=== PATIENT | male | born 1945 | race Caucasian/White ===

== ENCOUNTER 2019-05-19 22:15 | Inpatient (IN) ==
--- NOTE | 2019-05-19 22:35 | Emergency Department Note ---
Altered Mental Status HPI - General Chief Complaint: Altered Mental Status Stated Complaint: Altered LOC Time Seen by Provider: 05/19/19 22:22 Source: patient, family Mode of arrival: wheelchair Limitations: no limitations - History of Present Illness HPI Narrative: 73-year-old male comes in for altered mental status for the last 3 days. Apparently he was seen on the fifth, that is 4 days ago, and is treated with ciprofloxacin for a urinary tract infection. I reviewed Dr. Villalobos's note from that visit as well as the microbiology which shows coagulase-negative staph which is resistant to Levaquin. Anyways he has not gotten better over the last 3 days. 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 He has an indwelling suprapubic catheter that was last changed on the first of the month or 9 days ago. He is also on methenamine and Zofran for nausea. He had a normal bowel movements this morning - Related Data Home Medications Medication Instructions Recorded Confirmed aspirin 81 mg tablet,delayed 81 mg PO QDAY tab 11/30/14 05/19/19 release baclofen 20 mg tablet 20 mg PO TID tab 11/30/14 05/19/19 Famotidine [Pepcid] 20 mg PO HS 12/22/15 05/19/19 guaiFENesin [Mucus Relief] 400 mg PO QDP PRN 12/22/15 05/19/19 Pilocarpine HCl [Salagen] 5 mg PO TID 08/25/17 05/19/19 bisacodyl 5 mg tablet,delayed 10 mg PO QPM 2 Days #4 tab 05/27/18 05/19/19 release folic acid 1 mg tablet 2 mg PO QDAY 11/18/18 05/19/19 multivitamin 1 tab PO QDAY 11/18/18 05/19/19 Previous Rx's Medication Instructions Recorded Contour Test Strips See Dose Instructions .ROUTE 10/02/16 .MEDSUPPLY #100 each NS Sterile Saline #3 each 01/22/17 methotrexate sodium 5 mg tablet 15 mg PO QWEEK #60 tab 07/09/17 Disabled parking permit #1 ea 10/22/17 betamethasone dipropionate 0.05 % 1 applic TOPICAL BID PRN #45 g 10/22/17 topical cream furosemide 40 mg tablet 40 mg PO QDAY #30 tab 11/12/17 sitagliptin 50 mg-metformin 1,000 1 tab PO BID #60 tab 12/11/17 mg tablet potassium chloride 10 mEq 10 meq PO QDAY #30 cap 12/18/17 capsule,extended release diazepam 5 mg tablet 5 mg PO TID PRN #60 tab 01/10/18 trazodone 100 mg tablet 100 mg PO .COMPLEX #30 tab 01/10/18 citalopram 20 mg tablet 30 mg PO QDAY #45 tab 01/17/18 spironolactone 50 mg tablet 50 mg PO QDAY #30 tab 03/11/18 hydrocodone 5 mg-acetaminophen 325 1 tab PO Q4-6H PRN #120 tab 05/27/18 mg tablet methenamine hippurate 1 gram tablet 1 g PO BID #60 tab 10/22/18 Fluticasone Propionate [24 Hour 2 spray NS DAILY #1 unit 04/17/19 Allergy Relief] Ciprofloxacin [Cipro] 250 mg PO BID #20 tab 05/15/19 Methenamine Hippurate [Hiprex] 1 gm PO 1HRACBID #60 tab 05/15/19 Ondansetron [Zofran ODT] 4 mg SL Q4-6HP PRN #30 tab 05/15/19 Allergies Allergy/AdvReac Type Severity Reaction Status Date / Time canagliflozin [From Invokana] Allergy Intermediate Itching Verified 05/15/19 18:55 Review of Systems All systems ED: reviewed and negative except as stated. Past Medical History - Past Medical History Attestation: Yes: The following information was validated with the patient. Medical history: Reports: DM, other (C3-4 incomplete quadriplegia) Surgical history ED: Reports: orthopedic, other - Social History smoking status: Former smoker Alcohol use: Reports: Rarely Drug use: Reports: none Physical Exam Normocephalic atraumatic. Conjunctive are clear sclerae white and icteric. Pupils are equal round reactive to light. No nasal discharge or congestion. Oropharynx with dry buccal mucosa. Posterior pharynx is clear. Neck is supple without lymphadenopathy or thyromegaly. Heart is regular rate and rhythm no murmur appreciated. Lungs are clear to auscultation bilaterally without wheezes rales rhonchi or respiratory distress. Abdomen is soft nontender nondistended. He does have a suprapubic catheter in place -the site is clean dry and intact. His Rodarte bag shows yellow urine that is clear. He does have arm and leg atrophy and extension status post motor paralysis. We did roll him and look at his backside he does have a tiny wound perhaps 1 to 2 mm at the center of his back. This is bandaged and appears to be healing well. No evidence of infection there-no erythema edema purulent drainage etc. Because of his decreased hematocrit and elevated BUN I did a rectal exam. He is Hemoccult negative. He has no rectal tone consistent with his quadriplegia. Looking at his perineum he does have a stage I pressure ulcer over his sacrum- this is new per his Limitations: no limitations Course Vital Signs Temperature 97.2 F 05/19/19 22:17 Pulse Rate 59 L 05/19/19 22:17 Respiratory Rate 17 05/19/19 22:17 Blood Pressure 135/66 05/19/19 22:17 Pulse Oximetry (%) 96 05/19/19 22:17 Temperature 97.2 F 05/19/19 22:17 Pulse Rate 67 05/19/19 23:47 Respiratory Rate 13 05/19/19 23:47 Blood Pressure 129/71 05/19/19 23:47 Pulse Oximetry (%) 94 05/19/19 23:47 Altered Mental Status - Lab Data Lab results reviewed: Yes I reviewed the patient's lab results. Result diagrams: 05/19/19 22:40 05/19/19 22:40 Lab Results 05/19/19 05/19/19 05/19/19 Range/Units 22:40 22:40 22:40 WBC 6.9 (4.5-11.0) K/mcL RBC 3.59 L (4.50-5.90) M/mcL Hgb 11.4 L (13.5-16.5) g/dL Hct 33.9 L (41.0-55.0) % POC Hct 32.0 L (41.0-55.0) % MCV 94.4 (80.0-100.0) fL MCH 31.7 (26.0-34.0) pg MCHC 33.5 (31.0-36.0) g/dL RDW 17.2 H (11.5-14.5) % Plt Count 162 (140-440) K/mcL MPV 7.8 (7.4-10.4) fL Gran % 87.8 H (38.0-78.0) % Lymph % (Auto) 5.1 L (15.5-49.0) % [place] % (Auto) 3.3 (1.0-12.0) % Eos % (Auto) 3.8 (0.0-7.0) % Baso % (Auto) 0 (0.0-2.0) % Gran # 6.1 (1.8-8.0) K/mcL Lymph # (Auto) 0.4 L (1.5-4.8) K/mcL [place] # (Auto) 0.2 (0.1-0.9) K/mcL Eos # (Auto) 0.3 (0.0-0.7) K/mcL Baso # (Auto) 0 (0.0-0.3) K/mcL VBG Lactic Acid 2.1 H (0.5-2.0) mmol/L POC Sodium 132 L (133-145) mmol/L Sodium 130 L (133-145) mmol/L POC Potassium 5.1 (3.3-5.1) mmol/L Potassium 5.1 (3.3-5.1) mmol/L POC Chloride 99 (96-108) mmol/L Chloride 93 L (96-108) mmol/L Carbon Dioxide 24 (22-30) mmol/L POC Total CO2 27 (22-30) mmol/L Anion Gap 13.0 (8-16) POC BUN 53 H (8-23) mg/dl BUN 55 H (8-23) mg/dl Creatinine 2.4 H (0.7-1.2) mg/dl POC Creatinine 2.7 H (0.7-1.2) mg/dl GFR Calculation 26 Glucose 140 H (70-105) mg/dL POC Glucose 133 H (70-105) mg/dL Calcium 11.3 H (8.6-10.4) mg/dl POC WB Ioniz Calcium 1.43 H (1.16-1.32) mmol/L Total Bilirubin 0.4 (0.0-1.0) mg/dL AST 32 (0-37) U/l ALT 36 (0-40) U/l Alkaline Phosphatase 83 (39-117) U/L Ammonia (16-60) umol/L Total Protein 7.7 (5.9-8.4) gm/dL Albumin 3.7 (3.2-5.2) gm/dL Globulin 4.0 H (2.2-3.7) gm/dL Albumin/Globulin Ratio 0.9 L (1.0-2.3) Urine Color Urine Appearance Urine pH (5.0-9.0) Ur Specific [place] (1.000-1.035) Urine Protein (NEG) mg/dL Urine Glucose (UA) (NEG) mg/dL Urine Ketones (NEG) mg/dL Urine Occult Blood (<0.03) mg/dL Urine Nitrate (NEG) Urine Bilirubin (NEG) mg/dL Urine Urobilinogen (NEG) mg/dL Ur Leukocyte Esterase (NEG) /uL Urine RBC (0-1) /hpf Urine WBC (0-4) /hpf Ur Squamous Epith Cells (0-4) /hpf Calcium Oxalate Crystal (0) /hpf Amorphous Crystals (0) /hpf Urine Bacteria (0) /hpf Hyaline Casts (0-2) /lpf Urine Mucus (0) /hpf 05/19/19 05/19/19 Range/Units 22:40 23:05 WBC (4.5-11.0) K/mcL RBC (4.50-5.90) M/mcL Hgb (13.5-16.5) g/dL Hct (41.0-55.0) % POC Hct (41.0-55.0) % MCV (80.0-100.0) fL MCH (26.0-34.0) pg MCHC (31.0-36.0) g/dL RDW (11.5-14.5) % Plt Count (140-440) K/mcL MPV (7.4-10.4) fL Gran % (38.0-78.0) % Lymph % (Auto) (15.5-49.0) % [place] % (Auto) (1.0-12.0) % Eos % (Auto) (0.0-7.0) % Baso % (Auto) (0.0-2.0) % Gran # (1.8-8.0) K/mcL Lymph # (Auto) (1.5-4.8) K/mcL [place] # (Auto) (0.1-0.9) K/mcL Eos # (Auto) (0.0-0.7) K/mcL Baso # (Auto) (0.0-0.3) K/mcL VBG Lactic Acid (0.5-2.0) mmol/L POC Sodium (133-145) mmol/L Sodium (133-145) mmol/L POC Potassium (3.3-5.1) mmol/L Potassium (3.3-5.1) mmol/L POC Chloride (96-108) mmol/L Chloride (96-108) mmol/L Carbon Dioxide (22-30) mmol/L POC Total CO2 (22-30) mmol/L Anion Gap (8-16) POC BUN (8-23) mg/dl BUN (8-23) mg/dl Creatinine (0.7-1.2) mg/dl POC Creatinine (0.7-1.2) mg/dl GFR Calculation Glucose (70-105) mg/dL POC Glucose (70-105) mg/dL Calcium (8.6-10.4) mg/dl POC WB Ioniz Calcium (1.16-1.32) mmol/L Total Bilirubin (0.0-1.0) mg/dL AST (0-37) U/l ALT (0-40) U/l Alkaline Phosphatase (39-117) U/L Ammonia 13 L (16-60) umol/L Total Protein (5.9-8.4) gm/dL Albumin (3.2-5.2) gm/dL Globulin (2.2-3.7) gm/dL Albumin/Globulin Ratio (1.0-2.3) Urine Color Yellow Urine Appearance Hazy Urine pH 5.0 (5.0-9.0) Ur Specific [place] 1.014 (1.000-1.035) Urine Protein Neg (NEG) mg/dL Urine Glucose (UA) Negative (NEG) mg/dL Urine Ketones Neg (NEG) mg/dL Urine Occult Blood Neg (<0.03) mg/dL Urine Nitrate Neg (NEG) Urine Bilirubin Neg (NEG) mg/dL Urine Urobilinogen Neg (NEG) mg/dL Ur Leukocyte Esterase 250 A (NEG) /uL Urine RBC 1 (0-1) /hpf Urine WBC 15 H (0-4) /hpf Ur Squamous Epith Cells 0 (0-4) /hpf Calcium Oxalate Crystal Few A (0) /hpf Amorphous Crystals Few A (0) /hpf Urine Bacteria 0 (0) /hpf Hyaline Casts 3 H (0-2) /lpf Urine Mucus Few (0) /hpf Disposition Pt seen by [employer]/PA only: No Clinical Impression: Dehydration Altered mental status Qualifiers: Altered mental status type: delirium Qualified Code(s): R41.0 - Disorientation, unspecified Urinary tract infection Qualifiers: Urinary tract infection type: catheter-associated UTI Indwelling urinary catheter type: cystostomy catheter Encounter type: subsequent encounter Qualified Code(s): T83.510D - Infection and inflammatory reaction due to cystostomy catheter, subsequent encounter; N39.0 - Urinary tract infection, site not specified Acute renal failure Qualifiers: Acute renal failure type: unspecified Qualified Code(s): N17.9 - Acute kidney failure, unspecified Hypotension Qualifiers: Hypotension type: unspecified hypotension type Qualified Code(s): I95.9 - Hypotension, unspecified Pressure ulcer, stage 1 Qualifiers: Pressure injury location: contiguous region involving back and buttock Laterality: unspecified laterality Qualified Code(s): L89.41 - Pressure ulcer of contiguous site of back, buttock and hip, stage 1 Summary: Likely partially treated or resistant UTI causing symptoms of altered mental status. However we will check chest x-ray and laboratory as well. Start nitrofurantoin per sensitivities on microbiology from 4 days ago. He looks dehydrated on exam-dry buccal mucosa His creatinine is elevated to 2.4 from 1.6. We will start normal saline IV fluid for acute renal failure. This is likely prerenal. BUN is elevated as well but he is Hemoccult negative and hemoglobin is 11.6. Blood pressure is low normal-starting IV fluids Pressure responded well to IV fluids. I discussed findings with the patient and his -recommend that he come in the hospital for further evaluation and care Discussed case with Dr. Martin, hospitalist. He agreed except the patient for further care and evaluation. Recommend we change antibiotics to Rocephin and continue IV fluids. I will write transition orders Disposition: Xfer As Inpt ([facility]) Condition: Serious Referrals: Anand Zavala MD [Primary Care Provider] -
[2019-05-19] MEDS ORDERED: NITROFURANTOIN SR 100 MG CAPSULE PO ONE (22:39)
[2019-05-19 22:47] LABS: POC Blood Urea Nitrogen 53 mg/dl (8-23); POC CO2 27 mmol/L (22-30); POC Calcium, Ionized 1.43 mmol/L (1.16-1.32); POC Chloride 99 mmol/L (96-108); POC Creatinine 2.7 mg/dl (0.7-1.2); POC Glucose, Random 133 mg/dL (70-105); POC Potassium 5.1 mmol/L (3.3-5.1); POC Sodium 132 mmol/L (133-145)
[2019-05-19 23:26] LABS: Basophils # (Auto) 0 K/mcL (0.0-0.3); Basophils % (Auto) 0 % (0.0-2.0); Eosinophils # (Auto) 0.3 K/mcL (0.0-0.7); Eosinophils % (Auto) 3.8 % (0.0-7.0); Granulocytes % (Auto) 87.8 % (38.0-78.0); Hematocrit 33.9 % (41.0-55.0); Hemoglobin 11.4 g/dL (13.5-16.5); Lymphocytes # (Auto) 0.4 K/mcL (1.5-4.8); Lymphocytes % (Auto) 5.1 % (15.5-49.0); Mean Cell Volume 94.4 fL (80.0-100.0); Mean Corpuscular HGB Conc 33.5 g/dL (31.0-36.0); Mean Platelet Volume 7.8 fL (7.4-10.4); Monocytes # (Auto) 0.2 K/mcL (0.1-0.9); Monocytes % (Auto) 3.3 % (1.0-12.0); Platelet Count 162 K/mcL (140-440); RBC 3.59 M/mcL (4.50-5.90); Red Cell Distribution Width 17.2 % (11.5-14.5); WBC 6.9 K/mcL (4.5-11.0)
[2019-05-19] MEDS ORDERED: 0.9 % SODIUM CHLORIDE 1,000 ML IV ONE (23:35)
[2019-05-19 23:37] LABS: ALT/SGPT 36 U/l (0-40); AST/SGOT 32 U/l (0-37); Albumin 3.7 gm/dL (3.2-5.2); Albumin/Globulin Ratio 0.9 (1.0-2.3); Alkaline Phosphatase 83 U/L (39-117); Bilirubin,Total 0.4 mg/dL (0.0-1.0); Blood Urea Nitrogen 55 mg/dl (8-23); Calcium 11.3 mg/dl (8.6-10.4); Carbon Dioxide 24 mmol/L (22-30); Chloride 93 mmol/L (96-108); Glomerular Filtration Rate 26; Glucose 140 mg/dL (70-105)
[2019-05-19 23:53] LABS: Appearance,Urine HAZY; Bacteria,Urine 0 /hpf (0); Bilirubin,Urine NEG (NEG); Calcium Oxalate Crystals,Urine FEW /hpf (0); Color,Urine YELLOW; Glucose,Urine (UA) NEGATIVE (NEG); Ketones,Urine NEG (NEG); Leukocyte Esterase,Urine 250 /uL (NEG); Mucus,Urine FEW /hpf (0); Nitrate,Urine NEG (NEG); Protein,Urine NEG (NEG); Specific Gravity,Urine 1.014 (1.000-1.035); Urine Amorphous Crystals FEW /hpf (0); Urine Blood NEG mg/dL (<0.03); Urine Hyaline Cast 3 /lpf (0-2); Urine RBC 1 /hpf (0-1); Urine Squamous Epithelial Cell 0 /hpf (0-4); Urine WBC 15 /hpf (0-4); Urobilinogen,Urine NEG (NEG)
[2019-05-20] MEDS ORDERED: cefTRIAXone 1 GM VIAL IV ONE (00:09)
[2019-05-20] MEDS: 0.9 % SODIUM CHLORIDE 1,000 ML IV SCH ×3 (02:19→22:17)
--- NOTE | 2019-05-20 06:02 | XRay Report ---
CLINICAL INFORMATION:Altered mental status TECHNIQUE: AP portable semiupright chest x-ray COMPARISON: Previous chest x-rays dated 05/15/2019, 04/17/2019, 03/27/2016 FINDINGS:Lungs are negative. No parenchymal infiltrate or mass. No focal pulmonary parenchymal abnormality. Heart size and vascularity are normal. Mahsa and mediastinum are negative. There is no pleural fluid. IMPRESSION: No acute abnormality. Interpreted and Authenticated by: Nolan Davila 05/20/19
[2019-05-20] MEDS: POLYETHYLENE GLYCOL 3350 17 GM PACKET PO SCH ×2 (08:16→21:07)
[2019-05-20] MEDS ORDERED: BACLOFEN 10 MG TABLET PO SCH (09:00)
[2019-05-20] MEDS ORDERED: ONDANSETRON 4 MG ODT TABLET SL PRN (09:27)
[2019-05-20] MEDS ORDERED: BETAMETHASONE DIPR CRM 0.05% 15GM TUBE TOPICAL PRN (09:27)
[2019-05-20] MEDS ORDERED: guaiFENesin 600 MG TAB.SR.12H PO PRN (09:27)
[2019-05-20] MEDS ORDERED: traZODone HCL 100 MG TABLET PO SCH (09:30)
[2019-05-20] MEDS ORDERED: POLYETHYLENE GLYCOL 3350 17 GM PACKET PO SCH (09:30)
--- NOTE | 2019-05-20 09:30 | Internal Med History&Physical ---
Medical - H&P: [facility] Patient information: Note initiated : 05/20/19 at 9:28 am Service Date, if different from initiated Date: [] Patient: Ketan Bajwa a 73 y/o M admitted on 05/20/19 for Altered LOC. Chief Complaint: [] Chief complaint: Fatigue lethargic and mental status change History of present illness: Mr. Bajwa is a 73 year old M with a known history of epidural abscess with C5 7 paraplegia with chronic indwelling suprapubic catheter who presents to [facility] ER along with his with progressive weakness lethargy and generalized decline in overall wellbeing. Patient has been in his baseline state of health roughly 2 weeks prior to presentation when he was diagnosed with influenza. He was treated outpatient on Tamiflu along with cefdinir for URI. However despite treatment he gradually continued to deteriorate. Additionally he was started on 5 days Cipro after he was diagnosed urinary tract infection in the recent ER visit. However Christina noted that despite above treatments he has become worse. Suprapubic catheter was last changed 10 days ago. Christina denies him being started on new medications. She denies noticing fever, diarrhea, chest pain, abdominal pain headache or photophobia. Initial work-up in the ER was consistent with complicated UTI and creatinine 2.4 up from baseline 1.3. Patient was started antibiotics after cultures were drawn. Calcium was noted 11.3. Hospitalist service was consulted in light of volume depletion/JASSI and complica jeronimo UTI with mental status change At the time evaluation patient is accompanied with his Christina who is an RN. She is able to answer most the question. Patient is lethargic but was able to participate in review of systems. He endorses to history as above. 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 Byron Powell Quadriplegia (Chronic) Incomplete quadriplegia secondary to epidural abscess Polyarthropathy, inflammatory (Chronic) Obstructive sleep apnea (Chronic) Neurogenic bowel (Chronic) Neurogenic bladder (Chronic 12/24/13) Incomplete bladder emptying (Chronic 12/24/13) Hypertension, essential (Chronic) Hyperlipemia (Chronic) History of gout (Chronic) GERD (gastroesophageal reflux disease) (Chronic) 08/21/2014 Disc disorder (Chronic) Discitis, C-spine Diabetes mellitus, type II (Chronic) Reactive depression (situational) (Chronic) Colonic benign neoplasm (Chronic) Chronic obstructive pulmonary disease (Chronic) 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 Acute bacterial endocarditis (Resolved) [id number] renal failure (Resolved) Anemia (Resolved) Anxiety disorder (Resolved) Aspiration pneumonia (Resolved) Bacteremia (Resolved) Breathing sounds, abnormal (Resolved) Complicated UTI (urinary tract infection) (Resolved) Cystitis (Resolved) Esophageal dysmotility (Resolved) 08/25/2014 - See Esophagus Xray done at [facility] Guillain-[place] syndrome (Resolved) Infection following infusion, injection, transfusion or vaccination (Resolved) C-spine epidural abcess Insomnia (Resolved) retirement use of drug (Resolved) aspirin Methicillin resistant Staphylococcus aureus infection (Resolved 08/05/13) C6-7 Open wound (Resolved) Osteomyelitis (Resolved) Pneumonia (Resolved) Renal failure, acute (Resolved) Renal insufficiency (Resolved) Sepsis (Resolved) Weakness (Resolved) Surgical History History of suprapubic catheter (Chronic 12/30/13) History of appendectomy (Resolved) History of cholecystectomy (Resolved) History of colonoscopy (Resolved) 2004 negative History of laminectomy (Resolved 08/05/13) Bilateral C4, C5, C6 and C7 History of lumbar laminectomy for spinal cord decompression (Resolved) C6, C7 Family History Brother Family history of cardiovascular disease Father , in late 30's d/t [place] Family history of cardiovascular disease Social History smoking status: Former smoker to Christina and lives at home alcohol intake frequency: does not drink No substance abuse Family history: reviewed and not pertinent Medical - H&P: Meds Home Medications Medication Instructions Recorded Confirmed Type aspirin 81 mg tablet,delayed 81 mg PO QDAY tab 11/30/14 05/20/19 History release baclofen 20 mg tablet 20 mg PO TID tab 11/30/14 05/20/19 History Famotidine [Pepcid] 20 mg PO HS 12/22/15 05/20/19 History guaiFENesin [Mucus Relief] 400 mg PO QDP PRN 12/22/15 05/20/19 History methotrexate sodium 5 mg tablet 15 mg PO QWEEK #60 tab 07/09/17 05/20/19 Rx Pilocarpine HCl [Salagen] 5 mg PO TID 08/25/17 05/20/19 History betamethasone dipropionate 0.05 % 1 applic TOPICAL BID PRN #45 g 10/22/1705/20 Rx topical cream furosemide 40 mg tablet 40 mg PO QDAY #30 tab 11/12/17 05/20/19 Rx sitagliptin 50 mg-metformin 1,000 1 tab PO BID #60 tab 12/11/17 05/20/19 Rx mg tablet potassium chloride 10 mEq 10 meq PO QDAY #30 cap 12/18/17 05/20/19 Rx capsule,extended release diazepam 5 mg tablet 5 mg PO TID PRN #60 tab 01/10/18 05/20/19 Rx trazodone 100 mg tablet 100 mg PO .COMPLEX #30 tab 01/10/18 05/20/19 Rx citalopram 20 mg tablet 30 mg PO QDAY #45 tab 01/17/18 05/20/19 Rx spironolactone 50 mg tablet 50 mg PO QDAY #30 tab 03/11/18 05/20/19 Rx bisacodyl 5 mg tablet,delayed 10 mg PO QPM 2 Days #4 tab 05/27/18 05/20/19 History release hydrocodone 5 mg-acetaminophen 325 1 tab PO Q4-6H PRN #120 tab 05/27/18 05/20/19 Rx mg tablet methenamine hippurate 1 gram tablet 1 g PO BID #60 tab 10/22/18 05/20/19 Rx folic acid 1 mg tablet 2 mg PO QDAY 11/18/18 05/20/19 History multivitamin 1 tab PO QDAY 11/18/18 05/20/19 History Fluticasone Propionate [24 Hour 2 spray NS DAILY #1 unit 04/17/19 05/19/19 Rx Allergy Relief] Ondansetron [Zofran ODT] 4 mg SL Q4-6HP PRN #30 tab 05/15/19 05/20/19 Rx Celecoxib 1 tab PO DAILY 05/20/19 05/20/19 History Janumet 50-1,000 mg Tablet 1 mg PO BID 05/20/19 05/20/19 History Polyethylene Glycol 3350 [Miralax] 17 gm PO SUTUTH 05/20/19 05/20/19 History Allergies Allergy/AdvReac Type Severity Reaction Status Date / Time canagliflozin [From Invokana] Allergy Intermediate Itching Verified 05/15/19 18:55 Medical - H&P: Exam - Constitutional Vitals: Temp Pulse Resp BP Pulse Ox 98.2 F 78 18 123/68 99 05/20/19 08:00 05/20/19 08:00 05/20/19 08:00 05/20/19 08:00 05/20/19 08:00 General appearance: no acute distress Exam: Patient lethargic but responding to commands Head normocephalic Oral cavity dry No ear nose discharge Neck no lymphadenopathy S1-S2 regular rhythm no murmur diminished breath sounds bases Diminished breath sounds bases Abdomen soft nontender suprapubic catheter area no surrounding erythema Skin no suspicious lesion except for area of erythema on the gluteal area. Pictures reviewed Lower extremity no lymphedema cyanosis clubbing Psych fatigue lethargic but responding to commands Neuro quadriplegic, able to converse Medical - H&P: Reslt - Labs CBC & Chem 7: 05/21/19 04:10 05/21/19 04:10 Labs: Short CBC 05/19/19 Range/Units 22:40 WBC 6.9 (4.5-11.0) K/mcL Hgb 11.4 L (13.5-16.5) g/dL Hct 33.9 L (41.0-55.0) % Plt Count 162 (140-440) K/mcL BMP 05/19/19 22:40 Sodium 130 L Potassium 5.1 Chloride 93 L Carbon Dioxide 24 BUN 55 H Creatinine 2.4 H Glucose 140 H Calcium 11.3 H Liver Function 05/19/19 Range/Units 22:40 Total Bilirubin 0.4 (0.0-1.0) mg/dL AST 32 (0-37) U/l ALT 36 (0-40) U/l Alkaline Phosphatase 83 (39-117) U/L Albumin 3.7 (3.2-5.2) gm/dL Urine 05/19/19 Range/Units 23:05 Urine Color Yellow Urine Appearance Hazy Urine pH 5.0 (5.0-9.0) Ur Specific [place] 1.014 (1.000-1.035) Urine Protein Neg (NEG) mg/dL Urine Glucose (UA) Negative (NEG) mg/dL Medical - H&P: A/P (1) Complicated UTI (urinary tract infection) Current visit: Yes Status: Acute * Complicated hardware related UTI-continue antibiotic coverage. Cultures pending. Catheter changed 9 days ago. De-escalate based on culture sensitivities * JASSI -over 60% elevation baseline creatinine 2.4. Likely secondary to volume depletion. Continue crystalloids and monitor renal function. Avoid nephrotoxins. * Acute mental status change secondary to complicated UTI. Continue monitoring and delirium watch. Avoid sedative-hypnotics. Hold home dose benzodiazepine. * Hypercalcemia secondary to volume depletion/immobilization. Continue monitoring * C5 7 vertebral abscess with resultant quadriplegia. Continue skin care/frequent turning/decubitus watch and anti-spasmodics * Decubitus ulcer-wound care consult * DM type II continue CCD/prandial insulin/sitagliptin * Anxiety disorder continue citalopram * Degenerative joint disease continue hydrocodone * Intermittent spasm secondary to C7 spinal injury with quadriparesis, continue baclofen/diazepam * Full code * Prophylaxis heparin Plan * Inpatient admission * Monitor renal function * Broad antibiotic coverage * Crystalloids * Decubitus care * Frequent turning * PT OT/nutrition support * Prior medical condition management on home meds * Discharge planning Medical - H&P: Qual - VTE Deep Vein Thrombosis/Pulmonary Embolism Present on Admission: No
[2019-05-20] MEDS: sitaGLIPtin 50 MG TABLET PO SCH (11:44)
[2019-05-20] MEDS ORDERED: BACLOFEN 20 MG PO SCH (15:00)
[2019-05-20] MEDS: DIAZEPAM 5 MG TABLET PO PRN (20:56)
[2019-05-20] MEDS: BACLOFEN 10 MG TABLET PO SCH (20:56)
[2019-05-20] MEDS: FAMOTIDINE 20 MG TABLET PO SCH (20:56)
[2019-05-20] MEDS: traZODone HCL 100 MG TABLET PO SCH (20:57)
[2019-05-20] MEDS: METHENAMINE HIPPURATE 1 GM PO SCH (20:57)
[2019-05-20] MEDS ORDERED: FAMOTIDINE 20 MG TABLET PO SCH (21:00)
[2019-05-20] MEDS: BISACODYL 5 MG TABLET PO SCH (22:21)
[2019-05-20] MEDS ORDERED: ACETAMINOPHEN 650 MG/65 ML BOTTLE IV PRN (23:40)
[2019-05-21] MEDS ORDERED: ACETAMINOPHEN 1,000 MG/100 ML BOTTLE IV ONE (00:12)
[2019-05-21] MEDS: HYDROcodone/APAP 5/325MG TABLET PO PRN (00:17)
[2019-05-21 05:44] LABS: Hematocrit 30.1 % (41.0-55.0); Hemoglobin 10.1 g/dL (13.5-16.5); Mean Cell Volume 93.9 fL (80.0-100.0); Mean Corpuscular HGB Conc 33.6 g/dL (31.0-36.0); Mean Platelet Volume 7.6 fL (7.4-10.4); Platelet Count 193 K/mcL (140-440); Red Cell Distribution Width 16.3 % (11.5-14.5); WBC 5.1 K/mcL (4.5-11.0)
[2019-05-21 05:56] LABS: ALT/SGPT 41 U/l (0-40); AST/SGOT 46 U/l (0-37); Albumin 2.9 gm/dL (3.2-5.2); Albumin/Globulin Ratio 0.8 (1.0-2.3); Alkaline Phosphatase 69 U/L (39-117); Bilirubin,Direct < 0.2 mg/dL (0.0-0.3); Bilirubin,Total 0.3 mg/dL (0.0-1.0); Calcium 9.9 mg/dl (8.6-10.4); Carbon Dioxide 21 mmol/L (22-30); Chloride 101 mmol/L (96-108); Globulin 3.6 gm/dL (2.2-3.7); Glucose 111 mg/dL (70-105); Lactate Dehydrogenase 195 U/L (94-250); Phosphorous 3.3 mg/dL (2.7-4.5); Triglycerides 174 mg/dl (<150); Uric Acid 9.6 mg/dL (2.5-8.0)
[2019-05-21 06:12] LABS: Blood Urea Nitrogen 34 mg/dl (8-23); Glomerular Filtration Rate 46
[2019-05-21] MEDS: 0.9 % SODIUM CHLORIDE 1,000 ML IV SCH ×2 (07:12→08:51)
[2019-05-21 07:28] LABS: Anisocytosis 1+ (NONE SEEN); Eosinophils % (Manual) 4 % (0-7); Lymphocytes % 3 % (15-49); Monocytes % (Manual) 1 % (1-12); Platelet Estimate NORMAL (NORMAL); RBC Morphology ABNORM (NORMAL); Segmented Neutrophils % 92 % (38-78)
[2019-05-21] MEDS: SPIRONOLACTONE 25 MG TABLET PO SCH (09:48)
[2019-05-21] MEDS: FOLIC ACID 1 MG TABLET PO SCH (09:48)
[2019-05-21] MEDS: CITALOPRAM 20 MG TABLET PO SCH (09:49)
[2019-05-21] MEDS: sitaGLIPtin 50 MG TABLET PO SCH (09:50)
[2019-05-21] MEDS: MULTIVIT,THER IRON,CA,FA & MIN 1 TABLET PO SCH (09:50)
[2019-05-21] MEDS: CELECOXIB 200 MG CAPSULE PO SCH (09:50)
[2019-05-21] MEDS: POTASSIUM CHLORIDE 10 MEQ TABLET PO SCH (09:50)
[2019-05-21] MEDS: ASPIRIN 81 MG TAB.CHEW PO SCH (09:50)
[2019-05-21] MEDS: BACLOFEN 10 MG TABLET PO SCH ×2 (09:51→21:46)
[2019-05-21] MEDS: FUROSEMIDE 40 MG TABLET PO SCH (09:51)
[2019-05-21] MEDS: METHENAMINE HIPPURATE 1 GM PO SCH ×2 (09:54→21:45)
--- NOTE | 2019-05-21 10:43 | XRay Report ---
CLINICAL INFORMATION:Dyspnea TECHNIQUE: AP portable upright chest x-ray COMPARISON: Previous chest x-rays dated 05/19/2019, 05/15/2019, 04/17/2019 FINDINGS:Interstitial markings are prominent, unchanged. No focal pulmonary parenchymal consolidation. No pulmonary parenchymal mass. Heart size is within normal limits considering AP positioning. No evidence for congestive heart failure. Examination is unchanged. Incidental note is made of orthopedic hardware from previous lower cervical spine spinal fusion IMPRESSION: 1. No acute or focal abnormality 2. No interval change since 05/19/2019 Interpreted and Authenticated by: Nolan Davila 05/21/19
[2019-05-21] MEDS: BISACODYL 10 MG SUPP.RECT PR SCH (10:50)
[2019-05-21] MEDS: FLUTICASONE PROPIONATE SPRAY.NAS NS SCH (10:51)
[2019-05-21] MEDS: POLYETHYLENE GLYCOL 3350 17 GM PACKET PO SCH (10:51)
--- NOTE | 2019-05-21 12:25 | Internal Med Progress Note ---
Medical - PN: Subj Patient information: Note initiated : 05/21/19 at 12:21 pm Service Date, if different from initiated Date: [] Patient: Ketan Bajwa a 73 y/o M admitted on 05/20/19 for Altered LOC. Chief Complaint: [] Interval history: Mr. Bajwa is a 73 year old M with a known history of epidural abscess with C5 7 paraplegia with chronic indwelling suprapubic catheter who presents to [facility] ER along with his with progressive weakness lethargy and generalized decline in overall wellbeing. Patient has been in his baseline state of health roughly 2 weeks prior to presentation when he was diagnosed with influenza. He was treated outpatient on Tamiflu along with cefdinir for URI. However despite treatment he gradually continued to deteriorate. Additionally he was started on 5 days Cipro after he was diagnosed urinary tract infection in the recent ER visit. However Christina noted that despite above treatments he has become worse. Suprapubic catheter was last changed 10 days ago. Christina denies him being started on new medications. She denies noticing fever, diarrhea, chest pain, abdominal pain headache or photophobia. Initial work-up in the ER was consistent with complicated UTI and creatinine 2.4 up from baseline 1.3. Patient was started antibiotics after cultures were drawn. Calcium was noted 11.3. Hospitalist service was consulted in light of volume depletion/JASSI and co mplicated UTI with mental status change At the time evaluation patient is accompanied with his Christina who is an RN. She is able to answer most the question. Patient is lethargic but was able to participate in review of systems. He endorses to history as above. 05/21-patient appears fatigued lethargic. Creatinine down from 2.4-1.5. Sodium 134. Calcium down to 9.9. Appears hydrated well. Persistent mental status change. Urine cultures negative so far. White count 5.1. Lactic acid n ormalized. Interval chest x-ray no acute process. concerns about cough and persistent weakness and mental status change. Rodarte is draining clear urine. - Constitutional Vitals: Vital Signs Temp Pulse Resp BP Pulse Ox 97.6 F 88 16 157/67 94 05/21/19 07:22 05/21/19 07:22 05/21/19 07:22 05/21/19 07:22 05/21/19 07:22 Period Temp Pulse Resp BP Sys/Dyer Pulse Ox Last 24 Hr 97.3 F-99.5 F 82-90 16-22 115-157/67-75 94-100 Intake and Output 05/20/19 05/21/19 05/21/19 21:59 05:59 13:59 Intake Total 240 2060 1000 Output Total 1500 1350 Balance -9014 043 1785 Weight 145 lb 14.4 oz Intake & Output: Intake & Output 05/20/19 05/21/19 05/21/19 21:59 05:59 13:59 Intake Total 240 2060 1000 Output Total 1500 1350 Balance -2461 003 2336 Weight 145 lb 14.4 oz Intake: IV 1060 1000 Sodium Chloride 0.9% 1,000 ml @ 995 1000 100 mls/hr IV .Q10H GOVIND Rx#: [id number] Oral 240 1000 Output: Urine Catheter Amount 1500 1350 Other: Urine Appearance Clear Suprapubic Clear Clear Urine Color Bright Yellow Suprapubic Straw Bright Yellow Stool Size Small Stool Color Brown Stool Consistency Soft # Bowel Movements 1 General appearance: no acute distress Exam: Weak and fatigued nonlabored breathing Nondistended abdomen Suprapubic catheter No anxiety Medical - PN: Obj Da - Labs CBC & Chem 7: 05/21/19 04:10 05/21/19 04:10 Labs: Abnormal Lab Results 05/21/19 05/21/19 05/19/19 04:10 04:10 23:05 RBC 3.20 L Hgb 10.1 L Hct 30.1 L POC Hct RDW 16.3 H Gran % Lymph % (Auto) Lymph # (Auto) Seg Neutrophils % 92 H Lymphocytes % 3 L RBC Morphology Abnorm A Anisocytosis 1+ A VBG Lactic Acid POC Sodium Sodium Chloride Carbon Dioxide 21 L POC BUN BUN 34 H Creatinine 1.5 H POC Creatinine Glucose 111 H POC Glucose Uric Acid 9.6 H Calcium POC WB Ioniz Calcium AST 46 H ALT 41 H Ammonia Albumin 2.9 L Globulin Albumin/Globulin Ratio 0.8 L Triglycerides 174 H Ur Leukocyte Esterase 250 A Urine WBC 15 H Calcium Oxalate Crystal Few A Amorphous Crystals Few A Hyaline Casts 3 H 05/19/19 05/19/19 05/19/19 22:40 22:40 22:40 RBC Hgb Hct POC Hct 32.0 L RDW Gran % Lymph % (Auto) Lymph # (Auto) Seg Neutrophils % Lymphocytes % RBC Morphology Anisocytosis VBG Lactic Acid 2.1 H POC Sodium 132 L Sodium 130 L Chloride 93 L Carbon Dioxide POC BUN 53 H BUN 55 H Creatinine 2.4 H POC Creatinine 2.7 H Glucose 140 H POC Glucose 133 H Uric Acid Calcium 11.3 H POC WB Ioniz Calcium 1.43 H AST ALT Ammonia 13 L Albumin Globulin 4.0 H Albumin/Globulin Ratio 0.9 L Triglycerides Ur Leukocyte Esterase Urine WBC Calcium Oxalate Crystal Amorphous Crystals Hyaline Casts 05/19/19 22:40 RBC 3.59 L Hgb 11.4 L Hct 33.9 L POC Hct RDW 17.2 H Gran % 87.8 H Lymph % (Auto) 5.1 L Lymph # (Auto) 0.4 L Seg Neutrophils % Lymphocytes % RBC Morphology Anisocytosis VBG Lactic Acid POC Sodium Sodium Chloride Carbon Dioxide POC BUN BUN Creatinine POC Creatinine Glucose POC Glucose Uric Acid Calcium POC WB Ioniz Calcium AST ALT Ammonia Albumin Globulin Albumin/Globulin Ratio Triglycerides Ur Leukocyte Esterase Urine WBC Calcium Oxalate Crystal Amorphous Crystals Hyaline Casts Meds: Medications Hydrocodone Bitart/Acetaminophen ([place] 5/325mg) 1 tab PO Q4-6HP PRN; Protocol PRN Reason: Pain Last Admin: 05/21/19 00:17 Dose: 1 tab Documented by: Aspirin (Aspirin) 81 mg PO DAILY [facility] Last Admin: 05/21/19 09:50 Dose: 81 mg Documented by: Baclofen (Lioresal) 10 mg PO BID [facility] Last Admin: 05/21/19 09:51 Dose: 10 mg Documented by: Betamethasone Dipropion Augmented (Diprolene Af Cream 0.05%) 1 dose TOPICAL BIDP PRN PRN Reason: Rash Bisacodyl (Dulcolax) 10 mg PO SuTuTh@2100 [facility] Last Admin: 05/20/19 22:21 Dose: Not Given Documented by: Bisacodyl (Dulcolax) 10 mg [place] DAILY [facility] Last Admin: 05/21/19 10:50 Dose: 10 mg Documented by: Celecoxib (Celebrex) 200 mg PO DAILY [facility] Last Admin: 05/21/19 09:50 Dose: 200 mg Documented by: Citalopram Hydrobromide (Celexa) 30 mg PO DAILY [facility] Last Admin: 05/21/19 09:49 Dose: 30 mg Documented by: Diazepam (Valium) 5 mg PO TIDP PRN PRN Reason: Muscle Spasm Last Admin: 05/20/19 20:56 Dose: 5 mg Documented by: Famotidine (Pepcid) 20 mg PO HS [facility] Last Admin: 05/20/19 20:56 Dose: 20 mg Documented by: Fluticasone Propionate (Flonase) 2 spray NS DAILY [facility] Last Admin: 05/21/19 10:51 Dose: Not Given Documented by: Folic Acid (Folic Acid) 2 mg PO QDAY [facility] Last Admin: 05/21/19 09:48 Dose: 2 mg Documented by: Furosemide (Lasix) 40 mg PO QDAY [facility] Last Admin: 05/21/19 09:51 Dose: 40 mg Documented by: Guaifenesin (Mucinex) 600 mg PO DAILYP PRN PRN Reason: Congestion Acetaminophen (Ofirmev) 650 mg in 65 mls @ 130 mls/hr IV Q6HP PRN; Protocol PRN Reason: PAIN/FEVER > 101 Last Infusion: 05/21/19 00:45 Dose: Infused Documented by: Iron Carb/Multivit/Napavine/Folic Acid (Multivitamin W/Minerals) 1 tab PO DAILY [facility] Last Admin: 05/21/19 09:50 Dose: 1 tab Documented by: Methotrexate (Methotrexate) 15 mg PO Mo@0800 [facility] Ondansetron HCl (Zofran Odt) 4 mg SL Q4-6HP PRN PRN Reason: Nausea Methenamine (Hippurate 1 G Tablet) 1 dose PO BID [facility] Last Admin: 05/21/19 09:54 Dose: 1 dose Documented by: Pilocarpine Hcl [ (Salagen] 5 Mg Tablet) 1 dose PO TID [facility] Last Admin: 05/21/19 09:51 Dose: 1 dose Documented by: Polyethylene Glycol (Miralax) 17 gm PO DAILY [facility] Last Admin: 05/21/19 10:51 Dose: Not Given Documented by: Potassium Chloride (Kdur) 10 meq PO [facility] Last Admin: 05/21/19 09:50 Dose: 10 meq Documented by: Sitagliptin Phosphate (Januvia) 25 mg PO DAILY [facility] Last Admin: 05/21/19 09:50 Dose: 25 mg Documented by: Spironolactone (Aldactone) 50 mg PO DAILY [facility] Last Admin: 05/21/19 09:48 Dose: 50 mg Documented by: Trazodone HCl (Desyrel) 100 mg PO HS [facility] Last Admin: 05/20/19 20:57 Dose: 100 mg Documented by: Medical - PN: A/P - Time Spent With Patient Total time spent is greater than 50% in coordination of care (as documented) at patient's floor/unit and/or counseling patient: 25 - 35 minutes (1) Complicated UTI (urinary tract infection) Status: Acute Assessment and plan: * Complicated hardware related UTI-clinically improving. Continue antibiotic coverage. Negative cultures so far. * JASSI -over 60% elevation baseline creatinine 2.4. Current creatinine 1.5. Clinically improving. * Acute mental status change secondary to complicated UTI. Continue monitoring and delirium watch. Avoid sedative-hypnotics. Hold home dose benzodiazepine. * Hypercalcemia secondary to volume depletion/immobilization. Clinically improved with crystalloids. Down from 11.1-9.9. 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 Continue skin care/frequent turning/decubitus watch and anti-spasmodics * Decubitus ulcer-wound care as per wound physician * DM type II continue CCD/prandial insulin/sitagliptin * Anxiety disorder continue citalopram * Degenerative joint disease continue hydrocodone * Intermittent spasm secondary to C7 spinal injury with quadriparesis, continue baclofen/diazepam * Full code * Prophylaxis heparin Plan * Crystalloids * Continue antibiotic coverage * Continue monitoring renal functio * Decubitus care * Frequent turning * PT OT/nutrition support * Prior medical condition management on home meds * Discharge planning per case management Current Visit: Yes Medical - PN: Qual - VTE Deep Vein Thrombosis/Pulmonary Embolism Present on Admission: No
[2019-05-21] MEDS: FAMOTIDINE 20 MG TABLET PO SCH (21:46)
[2019-05-21] MEDS: traZODone HCL 100 MG TABLET PO SCH (21:46)
[2019-05-21] MEDS: DIAZEPAM 5 MG TABLET PO PRN (21:53)
[2019-05-22] MEDS: HYDROcodone/APAP 5/325MG TABLET PO PRN ×2 (05:17→23:23)
[2019-05-22] MEDS: POTASSIUM CHLORIDE 10 MEQ TABLET PO SCH (07:49)
[2019-05-22] MEDS: METHENAMINE HIPPURATE 1 GM PO SCH ×2 (09:39→21:54)
[2019-05-22] MEDS: SPIRONOLACTONE 25 MG TABLET PO SCH (09:43)
[2019-05-22] MEDS: CITALOPRAM 20 MG TABLET PO SCH (09:48)
[2019-05-22] MEDS: ASPIRIN 81 MG TAB.CHEW PO SCH (09:48)
[2019-05-22] MEDS: CELECOXIB 200 MG CAPSULE PO SCH (09:48)
[2019-05-22] MEDS: BISACODYL 10 MG SUPP.RECT PR SCH (09:48)
[2019-05-22] MEDS: FOLIC ACID 1 MG TABLET PO SCH (09:49)
[2019-05-22] MEDS: sitaGLIPtin 50 MG TABLET PO SCH (09:49)
[2019-05-22] MEDS: MULTIVIT,THER IRON,CA,FA & MIN 1 TABLET PO SCH (09:49)
[2019-05-22] MEDS: FUROSEMIDE 40 MG TABLET PO SCH (09:49)
[2019-05-22] MEDS: BACLOFEN 10 MG TABLET PO SCH ×3 (09:49→21:55)
[2019-05-22] MEDS: SITAGLIPTIN PO SCH ×2 (10:34→17:02)
[2019-05-22] MEDS: METFORMIN PO SCH ×2 (10:34→17:02)
[2019-05-22 11:26] LABS: Basophils # (Auto) 0 K/mcL (0.0-0.3); Basophils % (Auto) 0.1 % (0.0-2.0); Eosinophils # (Auto) 0.3 K/mcL (0.0-0.7); Granulocytes % (Auto) 85.3 % (38.0-78.0); Hematocrit 33.2 % (41.0-55.0); Hemoglobin 11.1 g/dL (13.5-16.5); Lymphocytes # (Auto) 0.4 K/mcL (1.5-4.8); Lymphocytes % (Auto) 7.3 % (15.5-49.0); Mean Cell Volume 93.8 fL (80.0-100.0); Mean Corpuscular HGB Conc 33.5 g/dL (31.0-36.0); Mean Platelet Volume 7.3 fL (7.4-10.4); Monocytes # (Auto) 0.1 K/mcL (0.1-0.9); Monocytes % (Auto) 1.3 % (1.0-12.0); Platelet Count 240 K/mcL (140-440); RBC 3.54 M/mcL (4.50-5.90); WBC 5.5 K/mcL (4.5-11.0)
--- NOTE | 2019-05-22 11:53 | Internal Med Progress Note ---
Medical - PN: Subj Patient information: Note initiated : 05/22/19 at 11:50 am Service Date, if different from initiated Date: [] Patient: Ketan Bajwa a 73 y/o M admitted on 05/20/19 for Altered LOC. Chief Complaint: [] Interval history: Mr. Bajwa is a 73 year old M with a known history of epidural abscess with C5 7 paraplegia with chronic indwelling suprapubic catheter who presents to [facility] ER along with his with progressive weakness lethargy and generalized decline in overall wellbeing. Patient has been in his baseline state of health roughly 2 weeks prior to presentation when he was diagnosed with influenza. He was treated outpatient on Tamiflu along with cefdinir for URI. However despite treatment he gradually continued to deteriorate. Additionally he was started on 5 days Cipro after he was diagnosed urinary tract infection in the recent ER visit. However Christina noted that despite above treatments he has become worse. Suprapubic catheter was last changed 10 days ago. Christina denies him being started on new medications. She denies noticing fever, diarrhea, chest pain, abdominal pain headache or photophobia. Initial work-up in the ER was consistent with complicated UTI and creatinine 2.4 up from baseline 1.3. Patient was started antibiotics after cultures were drawn. Calcium was noted 11.3. Hospitalist service was consulted in light of volume depletion/JASSI and co mplicated UTI with mental status change At the time evaluation patient is accompanied with his Christina who is an RN. She is able to answer most the question. Patient is lethargic but was able to participate in review of systems. He endorses to history as above. 05/21-patient appears fatigued lethargic. Creatinine down from 2.4-1.5. Sodium 134. Calcium down to 9.9. Appears hydrated well. Persistent mental status change. Urine cultures negative so far. White count 5.1. Lactic acid n ormalized. Interval chest x-ray no acute process. concerns about cough and persistent weakness and mental status change. Rodarte is draining clear urine. 05/22-patient doing a lot better. More alert lucid and this morning commands. Hemoglobin 11.1. White count 5.5. still concerned about patient not close to baseline. MRI brain today. Creatinine 1.5. A.m. creatinine pending. Coag negative staph on cultures. No overnight fever chills or concerns per staff. Family at bedside. - Constitutional Vitals: Vital Signs Temp Pulse Resp BP Pulse Ox 97.6 F 77 22 115/63 96 05/22/19 08:00 05/22/19 08:00 05/22/19 08:00 05/22/19 08:00 05/22/19 08:00 Period Temp Pulse Resp BP Sys/Dyer Pulse Ox Last 24 Hr 97.4 F-98.4 F 76-94 16-24 104-134/57-78 96-99 Intake and Output 05/21/19 05/22/19 05/22/19 21:59 05:59 13:59 Intake Total 180 250 Output Total 2650 1325 Balance -2470 -1075 Weight 142 lb 11.2 oz Intake & Output: Intake & Output 05/21/19 05/22/19 05/22/19 21:59 05:59 13:59 Intake Total 180 250 Output Total 2650 1325 Balance -2470 -1075 Weight 142 lb 11.2 oz Intake: Oral 180 250 Output: Urine Catheter Amount 2650 1325 Other: Meal Dinner Percent of Meal Consumed 5 Feeding Ability Total Assistance Urine Appearance Clear Suprapubic Clear Urine Color Pale Urine Odor Normal General appearance: no acute distress Exam: Alert oriented Nonlabored breathing Rodarte is draining clear urine Hallucinations Medical - PN: Obj Da - Labs CBC & Chem 7: 05/22/19 09:51 05/21/19 04:10 Labs: Abnormal Lab Results 05/22/19 05/21/19 05/21/19 09:51 04:10 04:10 RBC 3.54 L 3.20 L Hgb 11.1 L 10.1 L Hct 33.2 L 30.1 L POC Hct RDW 17.0 H 16.3 H MPV 7.3 L Gran % 85.3 H Lymph % (Auto) 7.3 L Lymph # (Auto) 0.4 L Seg Neutrophils % 92 H Lymphocytes % 3 L RBC Morphology Abnorm A Anisocytosis 1+ A VBG Lactic Acid POC Sodium Sodium Chloride Carbon Dioxide 21 L POC BUN BUN 34 H Creatinine 1.5 H POC Creatinine Glucose 111 H POC Glucose Uric Acid 9.6 H Calcium POC WB Ioniz Calcium AST 46 H ALT 41 H Ammonia Albumin 2.9 L Globulin Albumin/Globulin Ratio 0.8 L Triglycerides 174 H Ur Leukocyte Esterase Urine WBC Calcium Oxalate Crystal Amorphous Crystals Hyaline Casts 05/19/19 05/19/19 05/19/19 23:05 22:40 22:40 RBC Hgb Hct POC Hct RDW MPV Gran % Lymph % (Auto) Lymph # (Auto) Seg Neutrophils % Lymphocytes % RBC Morphology Anisocytosis VBG Lactic Acid 2.1 H POC Sodium Sodium Chloride Carbon Dioxide POC BUN BUN Creatinine POC Creatinine Glucose POC Glucose Uric Acid Calcium POC WB Ioniz Calcium AST ALT Ammonia 13 L Albumin Globulin Albumin/Globulin Ratio Triglycerides Ur Leukocyte Esterase 250 A Urine WBC 15 H Calcium Oxalate Crystal Few A Amorphous Crystals Few A Hyaline Casts 3 H 05/19/19 05/19/19 22:40 22:40 RBC 3.59 L Hgb 11.4 L Hct 33.9 L POC Hct 32.0 L RDW 17.2 H MPV Gran % 87.8 H Lymph % (Auto) 5.1 L Lymph # (Auto) 0.4 L Seg Neutrophils % Lymphocytes % RBC Morphology Anisocytosis VBG Lactic Acid POC Sodium 132 L Sodium 130 L Chloride 93 L Carbon Dioxide POC BUN 53 H BUN 55 H Creatinine 2.4 H POC Creatinine 2.7 H Glucose 140 H POC Glucose 133 H Uric Acid Calcium 11.3 H POC WB Ioniz Calcium 1.43 H AST ALT Ammonia Albumin Globulin 4.0 H Albumin/Globulin Ratio 0.9 L Triglycerides Ur Leukocyte Esterase Urine WBC Calcium Oxalate Crystal Amorphous Crystals Hyaline Casts Meds: Medications Hydrocodone Bitart/Acetaminophen ([place] 5/325mg) 1 tab PO Q4-6HP PRN; Protocol PRN Reason: Pain Last Admin: 05/22/19 05:17 Dose: 1 tab Documented by: Aspirin (Aspirin) 81 mg PO DAILY [facility] Last Admin: 05/22/19 09:48 Dose: 81 mg Documented by: Baclofen (Lioresal) 10 mg PO BID [facility] Last Admin: 05/22/19 09:49 Dose: 10 mg Documented by: Betamethasone Dipropion Augmented (Diprolene Af Cream 0.05%) 1 dose TOPICAL BIDP PRN PRN Reason: Rash Bisacodyl (Dulcolax) 10 mg PO SuTuTh@2100 [facility] Last Admin: 05/20/19 22:21 Dose: Not Given Documented by: Bisacodyl (Dulcolax) 10 mg [place] DAILY [facility] Last Admin: 05/22/19 09:48 Dose: Not Given Documented by: Celecoxib (Celebrex) 200 mg PO DAILY [facility] Last Admin: 05/22/19 09:48 Dose: 200 mg Documented by: Citalopram Hydrobromide (Celexa) 30 mg PO DAILY [facility] Last Admin: 05/22/19 09:48 Dose: 30 mg Documented by: Diagnostic Test (Pha) (Accu-Chek) 1 each FS ACHS [facility] Last Admin: 05/22/19 07:48 Dose: 1 each Documented by: Diazepam (Valium) 5 mg PO TIDP PRN PRN Reason: Muscle Spasm Last Admin: 05/21/19 21:53 Dose: 5 mg Documented by: Famotidine (Pepcid) 20 mg PO HS [facility] Last Admin: 05/21/19 21:46 Dose: 20 mg Documented by: Fluticasone Propionate (Flonase) 2 spray NS DAILY [facility] Last Admin: 05/21/19 10:51 Dose: Not Given Documented by: Folic Acid (Folic Acid) 2 mg PO QDAY [facility] Last Admin: 05/22/19 09:49 Dose: 2 mg Documented by: Furosemide (Lasix) 40 mg PO QDAY [facility] Last Admin: 05/22/19 09:49 Dose: 40 mg Documented by: Guaifenesin (Mucinex) 600 mg PO DAILYP PRN PRN Reason: Congestion Acetaminophen (Ofirmev) 650 mg in 65 mls @ 130 mls/hr IV Q6HP PRN; Protocol PRN Reason: PAIN/FEVER > 101 Last Infusion: 05/21/19 00:45 Dose: Infused Documented by: Iron Carb/Multivit/[place]/Folic Acid (Multivitamin W/Minerals) 1 tab PO DAILY [facility] Last Admin: 05/22/19 09:49 Dose: 1 tab Documented by: Methotrexate (Methotrexate) 15 mg PO Mo@0800 [facility] Ondansetron HCl (Zofran Odt) 4 mg SL Q4-6HP PRN PRN Reason: Nausea Methenamine (Hippurate 1 G Tablet) 1 dose PO BID [facility] Last Admin: 05/22/19 09:39 Dose: 1 dose Documented by: Pilocarpine Hcl [ (Salagen] 5 Mg Tablet) 1 dose PO TID [facility] Last Admin: 05/22/19 09:40 Dose: 1 dose Documented by: Sitagliptin/Metformin [Janumet] 50-1000 Mg Tab 1 dose PO BIDCC [facility] Last Admin: 05/22/19 10:34 Dose: 1 dose Documented by: Polyethylene Glycol (Miralax) 17 gm PO [facility] Potassium Chloride (Kdur) 10 meq PO QAMCC [facility] Last Admin: 05/22/19 07:49 Dose: 10 meq Documented by: Spironolactone (Aldactone) 50 mg PO DAILY [facility] Last Admin: 05/22/19 09:43 Dose: 50 mg Documented by: Trazodone HCl (Desyrel) 100 mg PO [facility] Last Admin: 05/21/19 21:46 Dose: 100 mg Documented by: Medical - PN: A/P - Time Spent With Patient Total time spent is greater than 50% in coordination of care (as documented) at patient's floor/unit and/or counseling patient: 25 - 35 minutes (1) Complicated UTI (urinary tract infection) Status: Acute Assessment and plan: * Complicated hardware related UTI-clinically resolved * JASSI -over 60% Clinically improving. Cr 1.5 * Acute mental status change secondary to complicated UTI. Improved * Hypercalcemia secondary to volume depletion/immobilization. Clinically improved with crystalloids. Down from 11.1-9.9. 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 Continue skin care/frequent turning/decubitus watch and anti-spasmodics * Decubitus ulcer-wound care as per wound physician * DM type II continue CCD/prandial insulin/sitagliptin * Anxiety disorder continue citalopram * Degenerative joint disease continue hydrocodone * Intermittent spasm secondary to C7 spinal injury with quadriparesis, continue baclofen/diazepam * Full code * Prophylaxis heparin Plan * continue Crystalloids * MRI brain * Decubitus care/ wound care * Frequent turning * PT OT/nutrition support * Prior medical condition management on home meds * Discharge planning per case management likely in 24 hours Current Visit: Yes Medical - PN: Qual - VTE Deep Vein Thrombosis/Pulmonary Embolism Present on Admission: No
[2019-05-22 12:27] LABS: ALT/SGPT 52 U/l (0-40); AST/SGOT 49 U/l (0-37); Albumin 3.3 gm/dL (3.2-5.2); Albumin/Globulin Ratio 0.8 (1.0-2.3); Alkaline Phosphatase 76 U/L (39-117); Bilirubin,Direct < 0.2 mg/dL (0.0-0.3); Bilirubin,Total 0.6 mg/dL (0.0-1.0); Calcium 10.2 mg/dl (8.6-10.4); Carbon Dioxide 25 mmol/L (22-30); Globulin 4.2 gm/dL (2.2-3.7); Glomerular Filtration Rate 60; Glucose 124 mg/dL (70-105); Lactate Dehydrogenase 213 U/L (94-250); Phosphorous 2.8 mg/dL (2.7-4.5); Triglycerides 141 mg/dl (<150); Uric Acid 8.1 mg/dL (2.5-8.0)
[2019-05-22 12:33] LABS: Blood Urea Nitrogen 23 mg/dl (8-23); Chloride 94 mmol/L (96-108)
[2019-05-22] MEDS: FLUTICASONE PROPIONATE SPRAY.NAS NS SCH (12:39)
--- NOTE | 2019-05-22 13:08 | Magnetic Resonance Report ---
CLINICAL INFORMATION: Altered mental status TECHNIQUE: Sagittal, axial, coronal images of the brain COMPARISON: Previous examination dated 02/08/2019 FINDINGS: No restricted diffusion. No acute infarction. No significant susceptibility. No hemorrhagic abnormality. There is mild white matter abnormality with scattered foci of increased signal intensity in the subcortical and periventricular white matter of both hemispheres. Findings are essentially unchanged and unremarkable for age. Mild small vessel ischemic change suspected. No focal abnormality. No localized mass effect. No midline shift. There is age-appropriate cerebral atrophy. Brainstem and cerebellum are negative. No extra-axial, intracranial abnormality. Normal flow void within vessels at the base of the brain. Basilar cisterns are normal. There is mild inflammatory disease within the ethmoid sinuses bilaterally. Mild mucosal thickening within maxillary sinuses. Findings are unchanged. IMPRESSION: 1. No acute or focal abnormality. No acute infarction 2. Mild white matter abnormality and cerebral atrophy. Findings are appropriate for age. 3. No interval change since 02/08/2019 Interpreted and Authenticated by: Nolan Davila 05/22/19
[2019-05-22] MEDS ORDERED: POLYETHYLENE GLYCOL 3350 17 GM PACKET PO SCH (21:00)
[2019-05-22] MEDS ORDERED: BACLOFEN 10 MG TABLET PO SCH (21:00)
[2019-05-22] MEDS: BISACODYL 5 MG TABLET PO SCH (21:43)
[2019-05-22] MEDS: traZODone HCL 100 MG TABLET PO SCH (21:55)
[2019-05-22] MEDS: FAMOTIDINE 20 MG TABLET PO SCH (21:55)
[2019-05-22] MEDS: DIAZEPAM 5 MG TABLET PO PRN (21:55)
[2019-05-23] MEDS: POLYETHYLENE GLYCOL 3350 17 GM PACKET PO SCH (01:54)
[2019-05-23] MEDS: HYDROcodone/APAP 5/325MG TABLET PO PRN (03:36)
[2019-05-23] MEDS: CELECOXIB 200 MG CAPSULE PO SCH (07:51)
[2019-05-23] MEDS: BISACODYL 10 MG SUPP.RECT PR SCH (07:51)
[2019-05-23] MEDS: BACLOFEN 10 MG TABLET PO SCH (07:52)
[2019-05-23] MEDS: MULTIVIT,THER IRON,CA,FA & MIN 1 TABLET PO SCH (07:52)
[2019-05-23] MEDS: FUROSEMIDE 40 MG TABLET PO SCH (07:52)
[2019-05-23] MEDS: SPIRONOLACTONE 25 MG TABLET PO SCH (07:52)
[2019-05-23] MEDS: FOLIC ACID 1 MG TABLET PO SCH (07:52)
[2019-05-23] MEDS: ASPIRIN 81 MG TAB.CHEW PO SCH (07:52)
[2019-05-23] MEDS: POTASSIUM CHLORIDE 10 MEQ TABLET PO SCH (07:52)
[2019-05-23] MEDS: CITALOPRAM 20 MG TABLET PO SCH (07:53)
[2019-05-23] MEDS: METHENAMINE HIPPURATE 1 GM PO SCH (07:53)
[2019-05-23] MEDS: SITAGLIPTIN PO SCH (07:53)
[2019-05-23] MEDS: METFORMIN PO SCH (07:53)
[2019-05-23] MEDS: FLUTICASONE PROPIONATE SPRAY.NAS NS SCH (07:54)
--- NOTE | 2019-05-23 12:46 | Discharge Summary ---
Medical - DS: Prov Patient information: Note initiated : 05/23/19 at 12:43 pm Service Date, if different from initiated Date: [] Patient: Ketan Bajwa 73 y/o M admitted on 05/20/19 for Altered LOC. Chief Complaint: [] Date of admission: 05/20/19 01:35 Discharge date: 05/23/19 Primary care physician: Anand Zavala Consults: 05/20/19 Consult to Physician [CONS] Stat Comment: Consulting Provider: Jac Momin Reason For Exam: Physician to Consult Medical - DS: Meds - Discharge Medications Active and Home Medications: Home Medications aspirin 81 mg tablet,delayed release 81 mg PO QDAY tab 11/30/14 [History Confirmed 05/20/19 Last Taken 05/19/19 07:30] baclofen 20 mg tablet 20 mg PO TID tab 11/30/14 [History Confirmed 05/20/19 Last Taken 05/19/19 07:30] Famotidine [Pepcid] 20 mg PO HS 12/22/15 [History Confirmed 05/20/19 Last Taken 05/18/19 21:00] guaiFENesin [Mucus Relief] 400 mg PO QDP PRN 12/22/15 [History Confirmed 05/20/19 Last Taken 08/24/17] methotrexate sodium 5 mg tablet 15 mg PO QWEEK #60 tab 07/09/17 [Rx Confirmed 05/20/19 Last Taken 05/19/19 07:30] Pilocarpine HCl [Salagen] 5 mg PO TID 08/25/17 [History Confirmed 05/20/19 Last Taken 05/19/19 07:30] betamethasone dipropionate 0.05 % topical cream 1 applic TOPICAL BID PRN #45 g 10/22/17 [Rx Confirmed 05/20/19 Last Taken 03/11/19] furosemide 40 mg tablet 40 mg PO QDAY #30 tab 11/12/17 [Rx Confirmed 05/20/19 Last Taken 05/19/19 07:30] sitagliptin 50 mg-metformin 1,000 mg tablet 1 tab PO BID #60 tab 12/11/17 [Rx Confirmed 05/20/19 Last Taken 05/19/19 07:30] potassium chloride 10 mEq capsule,extended release 10 meq PO QDAY #30 cap 07/10/18 [Rx Confirmed 05/20/19 Last Taken 05/19/19 07:30] diazepam 5 mg tablet 5 mg PO TID PRN #60 tab 01/10/18 [Rx Confirmed 05/20/19 L ast Taken 05/18/19 21:00] trazodone 100 mg tablet 100 mg PO .COMPLEX #30 tab 01/10/18 [Rx Confirmed 05/20/19 Last Taken 05/18/19 21:00] citalopram 20 mg tablet 30 mg PO QDAY #45 tab 01/17/18 [Rx Confirmed 05/20/19 Last Taken 05/19/19 07:30] spironolactone 50 mg tablet 50 mg PO QDAY #30 tab 03/11/18 [Rx Confirmed 05/20/19 Last Taken 05/19/19 07:30] bisacodyl 5 mg tablet,delayed release 10 mg PO QPM 2 Days #4 tab 05/27/18 [History Confirmed 05/20/19 Last Taken 05/18/19 21:00] hydrocodone 5 mg-acetaminophen 325 mg tablet 1 tab PO Q4-6H PRN #120 tab 05/27/18 [Rx Confirmed 05/20/19 Last Taken Unknown] methenamine hippurate 1 gram tablet 1 g PO BID #60 tab 10/22/18 [Rx Confirmed 05/20/19 Last Taken 05/19/19 07:30] folic acid 1 mg tablet 2 mg PO QDAY 11/18/18 [History Confirmed 05/20/19 Last Taken 05/19/19 07:30] multivitamin 1 tab PO QDAY 11/18/18 [History Confirmed 05/20/19 Last Taken Unknown] Fluticasone Propionate [24 Hour Allergy Relief] 2 spray NS DAILY #1 unit 04/17/19 [Rx Confirmed 05/19/19 Last Taken Unknown] Ondansetron [Zofran ODT] 4 mg SL Q4-6HP PRN #30 tab 05/15/19 [Rx Confirmed 05/20/19 Last Taken Unknown] Celecoxib 1 tab PO DAILY 05/20/19 [History Confirmed 05/20/19 Last Taken 05/19/19 07:30] Janumet 50-1,000 mg Tablet 1 mg PO BID 05/20/19 [History Confirmed 05/20/19 Last Taken 05/19/19 08:00] Polyethylene Glycol 3350 [Miralax] 17 gm PO SUTUTH 05/20/19 [History Confirmed 05/20/19 Last Taken 05/18/19 21:00] Medical - DS: Hosp Hospital Course: Discharge diagnosis * Acute renal failure -secondary to volume depletion. Clinically resolved * Acute mental status change secondary to complicated UTI and volume depletion. Clinically back at baseline. MRI brain unremarkable * Volume depletion resolved with crystalloids * Complicated hardware related UTI-clinically resolved * Hypercalcemia secondary to volume depletion/immobilization. 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 Managed with aggressive skin care/frequent turning/decubitus watch and anti-spasmodics * Sacral decubiti-managed by wound care nurse * DM type II continue CCD/prandial insulin/sitagliptin * Anxiety disorder managed on citalopram * Degenerative joint disease stable on hydrocodone * Intermittent spasm secondary to C7 spinal injury with quadriparesis, continue baclofen/diazepa Brief hospital course Mr. Bajwa is a 73 year old M with a known history of epidural abscess with C5 7 paraplegia with chronic indwelling suprapubic catheter who presents to [facility] ER along with his with progressive weakness lethargy and generalized decline in overall wellbeing. Patient has been in his baseline state of health roughly 2 weeks prior to presentation when he was diagnosed with influenza. He was treated outpatient on Tamiflu along with cefdinir for URI. However despite treatment he gradually continued to deteriorate. Additionally he was started on 5 days Cipro after he was diagnosed urinary tract infection in the recent ER visit. However Christina noted that despite above treatments he has become worse. Suprapubic catheter was last changed 10 days ago. Christina denies him being started on new medications. She denies noticing fever, diarrhea, chest pain, abdominal pain headache or photophobia. Initial work-up in the ER was consistent with complicated UTI and creatinine 2.4 up from baseline 1.3. Patient was started antibiotics after cultures were drawn. Calcium was noted 11.3. Hospitalist service was consulted in light of volume depletion/JASSI and complicated UTI with mental status change At the time evaluation patient is accompanied with his Christina who is an RN. She is able to answer most the question. Patient is lethargic but was able to participate in review of systems. He endorses to history as above. 05/21-patient appears fatigued lethargic. Creatinine down from 2.4-1.5. Sodium 134. Calcium down to 9.9. Appears hydrated well. Persistent mental status change. Urine cultures negative so far. White count 5.1. Lactic acid normalized. Interval chest x-ray no acute process. concerns about cough and persistent weakness and mental status change. Rodarte is draining clear urine. 05/22-patient doing a lot better. More alert lucid and this morning commands. Hemoglobin 11.1. White count 5.5. still concerned about patient not close to baseline. MRI brain today. Creatinine 1.5. A.m. creatinine pending. Coag negative staph on cultures. No overnight fever chills or concerns per staff. Family at bedside. 05/23-patient doing well. No overnight events. No concerns per staff. Now at baseline per patient and his Christina. No fever chills. Creatinine down to 1.2. Recommend follow-up with primary care physician in the next 5 to 7 days. Discharge instructions as below Discharge diagnosis: . - Time Spent with Patient Total time spent providing and/or coordinating discharge services: Greater than 30 minutes Medical - DS: Exam - Constitutional Vitals: Vital Signs Temp Pulse Resp BP Pulse Ox 05/23/19 11:50 99 F 18 122/72 90 05/23/19 08:00 97.8 F 18 109/62 92 05/23/19 03:35 98.4 F 81 16 107/67 94 05/23/19 01:35 95 05/22/19 23:53 97.8 F 78 18 152/81 89 L 05/22/19 23:25 92 05/22/19 19:35 99.0 F 83 20 134/72 91 05/22/19 16:00 97.5 F 70 20 112/65 92 Intake and Output 05/22/19 05/23/19 05/23/19 21:59 05:59 13:59 Intake Total 1280 200 240 Output Total 475 Balance 1280 -275 240 Intake: Oral 1280 200 240 Output: Urine Catheter Amount 475 Other: Meal Lunch Percent of Meal Consumed 100% Feeding Ability Assist with Tray Set Up Urine Appearance Clear Clear Suprapubic Clear Clear Urine Color Bright Yellow Bright Yellow Bright Yellow Suprapubic Bright Yellow Pale Weight 143 lb Medical - DS: A/P - Patient/Caregiver Discharge Instructions Activity: increase activity as tolerated Diet: Consistent Carbohydrate Additional Instructions: Follow-up primary care physician 5 to 7 days Continue adequate hydration Return to ER if worsening mental status change fever chills - Problem Maintenance (1) Complicated UTI (urinary tract infection) Status: Acute - Follow up Plan Follow up with: Anand Zavala MD [Primary Care Provider] - Disposition: Home, Self-Care Prognosis: Fair Rehab Potential: Fair I certify that the patient requires SNF services: No Overall status at discharge: patient is back to baseline Medical - DS: Qual - VTE Deep Vein Thrombosis/Pulmonary Embolism Present on Admission: No
[2019-05-26] MEDS ORDERED: METHOTREXATE SODIUM 2.5 MG TABLET PO SCH (08:00)
== END 2019-05-23 14:20 | disposition home or self-care (01) | DRG 682 ==
LOC: ED 22:15 → MEDSUR 05-20 01:35
PROVIDERS: ADMIT Internal Medicine; ATTEND Internal Medicine